=== PATIENT | male | born 1990 | race Caucasian/White ===

== ENCOUNTER 2017-11-27 17:27 | Emergency (ER) | payer OTHER ==
[2017-11-27 17:38] VITALS: BP 150/83
[2017-11-27] MEDS ORDERED: BACITRACIN OINT TOP STA (18:35)
--- NOTE | 2017-11-27 18:37 | ED Physician Documentation ---
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 Came in to have it evaluated tonight. Last tetanus was 5 years ago. Review of Systems Neurologic: denies: Focal weakness, Numbness PD PAST MEDICAL HISTORY - Past Medical History Past Medical History: No - Past Surgical History Past Surgical History: No - Present Medications Home Medications: Ambulatory Orders Medication Instructions Recorded Confirmed No Known Home Medications [No 11/27/17 11/27/17 Known Home Medications] - Allergies Allergies/Adverse Reactions: Allergies Allergy/AdvReac Type Severity Reaction Status Date / Time No Known Drug Allergies Allergy Verified 11/27/17 17:38 - Social History Does the pt smoke?: No Smoking Status: Never smoker Does the pt drink ETOH?: Yes - Immunizations Immunizations: TDAP current <10years PD ED PE NORMAL - Vitals Vital signs reviewed: Yes - General General: Alert and oriented X 3 - Derm Derm: Warm and dry - Extremities Extremities: Other (Left thumb 1 cm, linear laceration to the tip of the thumb. This is subcutaneous, not bleeding. Well approximated. Neurovascularly intact) PD MEDICAL DECISION MAKING - ED course Complexity details: considered differential, d/w patient ED course: Patient is a 27-year-old male with a subcutaneous laceration to the tip of the left thumb. Tetanus is up-to-date. Does not appear that this will benefit from sutures, therefore will allow it to heal by secondary intention. The wound was cleansed and bandaged. Finger cage placed over the thumb. Warnings of infection and instructions on wound care given at bedside. Also counseled on how to minimize scarring. Patient counseled regarding signs and symptoms for which I believe and urgent re-evaluation would be necessary. Patient with good understanding of and agreement to plan and is comfortable going home at this time This document was made in part using voice recognition software. While efforts are made to proofread this document, sound alike and grammatical errors may occur. Departure - Departure Disposition: 01 Home, Self Care Clinical Impression: Laceration Condition: Good Instructions: ED Laceration Hand Follow-Up: your,doctor in 4 days for wound check [Other] Comments: Return if you worsen. Keep the wound clean and dry. Apply antibiotic ointment twice daily. Return especially for redness, swelling or drainage from the wound Discharge Date/Time: 11/27/17 18:50
== END 2017-11-27 18:50 | disposition home or self-care (01) ==
LOC: ED 17:27
DX: S61.012A Laceration without foreign body of left thumb without damage to nail, initial encounter (principal); W26.0XXA Contact with knife, initial encounter
CPT/HCPCS: 99281; 99283; A9270

== ENCOUNTER 2018-06-10 14:47 | Emergency (ER) | payer OTHER ==
[2018-06-10] MEDS ORDERED: DEXAMETHASONE 10 MG/ML VIAL PO STA (15:22)
[2018-06-10] MEDS ORDERED: MELOXICAM 7.5 MG TABLET PO STA (15:22)
[2018-06-10] MEDS ORDERED: CYCLOBENZAPRINE 10 MG TABLET PO STA (15:22)
--- NOTE | 2018-06-10 15:26 | ED Physician Documentation ---
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 Staes better with rest and worse with movement. No specific injury. has had back issues in the apst. no fevers. no IVDU. no numbness, tingling, saddle anesthesia or loss of bowel/bladder control. Review of Systems Constitutional: denies: Fever, Chills GI: denies: Vomiting : denies: Incontinent Skin: denies: Rash PD PAST MEDICAL HISTORY - Past Medical History Past Medical History: No Cardiovascular: None Respiratory: None Neuro: None Endocrine/Autoimmune: None GI: None : None HEENT: None Psych: None Musculoskeletal: None Derm: None - Past Surgical History Past Surgical History: No - Present Medications Home Medications: Ambulatory Orders Medication Instructions Recorded Confirmed Cyclobenzaprine [Flexeril] 10 mg PO TID PRN #20 tablet 06/10/18 Meloxicam [Mobic] 15 mg PO DAILY PRN #20 tablet 06/10/18 predniSONE [Deltasone] 10 mg PO [id number] #42 tab 06/10/18 - Allergies Allergies/Adverse Reactions: Allergies Allergy/AdvReac Type Severity Reaction Status Date / Time No Known Drug Allergies Allergy Verified 11/27/17 17:38 - Social History Does the pt smoke?: No Smoking Status: Never smoker Does the pt drink ETOH?: Yes Does the pt have substance abuse?: No - Immunizations Immunizations: TDAP current <10years PD ED PE NORMAL - Vitals Vital signs reviewed: Yes - General General: Alert and oriented X 3, No acute distress - HEENT HEENT: PERRL, Moist mucous membranes - Neck Neck: Supple, no meningeal sign, No bony TTP - Cardiac Cardiac: RRR - Respiratory Respiratory: No respiratory distress, Clear bilaterally - Abdomen Abdomen: Soft, Non tender, Non distended - Back Back: No spinal TTP - Derm Derm: Warm and dry - Extremities Extremities: No deformity, Other (Normal bilateral lower extremity patellar and ankle jerk reflexes. Normal great toe extension bilaterally. 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 Does radiate to the bilateral lower extremities. No numbness or tingling. Will treat as sciatica and follow-up with his doctor. Will also place on muscle relaxants for home. No evidence of cauda equina or epidural abscess. No evidence of fracture. Patient counseled regarding signs and symptoms for which I believe and urgent re-evaluation would be necessary. Patient with good understanding of and agreement to plan and is comfortable going home at this time This document was made in part using voice recognition software. While efforts are made to proofread this document, sound alike and grammatical errors may occur. Departure - Departure Disposition: 01 Home, Self Care Clinical Impression: Lumbar strain Qualifiers: Encounter type: initial encounter Qualified Code(s): S39.012A - Strain of muscle, fascia and tendon of lower back, initial encounter Sciatica Qualifiers: Laterality: bilateral Qualified Code(s): M54.31 - Sciatica, right side Condition: Good Instructions: ED Sprain Strain Lumbar, ED Sciatica Follow-Up: your,doctor in 1 week for repeat evaluation [Other] Prescriptions: Cyclobenzaprine [Flexeril] 10 mg PO TID PRN #20 tablet PRN Reason: Spasms Meloxicam [Mobic] 15 mg PO DAILY PRN #20 tablet PRN Reason: pain predniSONE [Deltasone] 10 mg PO [id number] #42 tab Comments: Return if you worsen. This should improve over the next few days. Take all medications as prescribed. Forms: Activity restrictions Discharge Date/Time: 06/10/18 16:02
[2018-06-10 15:57] VITALS: BP 118/81
== END 2018-06-10 16:02 | disposition home or self-care (01) ==
LOC: ED 14:47
DX: S39.012A Strain of muscle, fascia and tendon of lower back, initial encounter (principal); X58.XXXA Exposure to other specified factors, initial encounter; M54.31 Sciatica, right side
CPT/HCPCS: 99283; A9270